=== PATIENT | female | born 1975 | race Asian ===

== ENCOUNTER 2017-08-12 16:02 | Inpatient (IN) | payer OTHER ==
[~2017-08-12] VITALS: Ht 152.4 cm; Wt 67.8 kg
[2017-08-12 17:03] LABS: APPEARANCE,URINE TURBID (CLEAR); GLUCOSE, URINE (UA) NEGATIVE (NEGATIVE); KETONES,URINE TRACE mg/dL (NEGATIVE); LEUKOCYTE ESTERASE ,URINE MODERATE (NEGATIVE); NITRATE,URINE NEGATIVE (NEGATIVE); OCCULT BLOOD,URINE LARGE (NEGATIVE); PROTEIN,URINE SEE CONFIRM (NEGATIVE)
[2017-08-12 17:04] LABS: BILIRUBIN,URINE PRELIM. POSITIVE (NEGATIVE)
[2017-08-12 17:06] LABS: SULFOSALICYLIC ACID,URINE 2+ (Negative)
[2017-08-12 17:07] LABS: RBC,URINE 51-100 /HPF (0-2)
[2017-08-12 17:08] LABS: BACTERIA,URINE Moderate /HPF (None Seen); SQUAMOUS EPITHELIAL CELL,UR Few /LPF (None Seen); WBC,URINE 26-50 /HPF (0-5)
[2017-08-12 17:09] LABS: MUCUS,URINE Few LPF (None Seen)
[2017-08-12 17:33] LABS: BASOPHILS % (AUTO) 0.8 % (0.0-2.0); EOSINOPHILS % (AUTO) 0.3 % (1.0-6.0); HEMATOCRIT 22.4 % (36-46); LYMPHOCYTES # (AUTO) 1.9 K/uL (1.0-4.8); LYMPHOCYTES % (AUTO) 10.4 % (22.0-44.0); MEAN CORPUSCULAR HEMOGLOBIN 19.1 pg (26.0-34.0); MEAN CORPUSCULAR HGB CONC 29.4 G/dL (31.0-37.0); MEAN CORPUSCULAR VOLUME 65 fL (80-100); MONOCYTES % (AUTO) 5.4 % (2.0-9.0); NEUTROPHILS # (AUTO) 15.1 K/uL (1.8-7.7); NEUTROPHILS % (AUTO) 83.1 % (40.0-70.0); PLATELET COUNT (AUTO) 705 K/uL (150-450); RED BLOOD CELL COUNT(AUTO) 3.44 MIL/uL (4.00-5.20); RED CELL DISTRIBUTION WIDTH 22.3 % (11.5-14.5)
[2017-08-12 17:37] LABS: ANION GAP 9 mmol/L (8-16); CALCIUM, TOTAL 8.9 mg/dL (8.8-10.5); CARBON DIOXIDE 30 mmol/L (22-29); CHLORIDE 99 mmol/L (98-107); CREATININE 0.77 mg/dL (0.60-1.30); GLOMERULAR FILTR. RATE CALC > 60 mL/min (>60); GLUCOSE,RANDOM 101 mg/dL (70-110); POTASSIUM 3.9 mmol/L (3.5-5.1); SODIUM SERUM 138 mmol/L (136-145); UREA NITROGEN, BLOOD 11 mg/dL (7-18)
[2017-08-12 17:50] LABS: HEMOGLOBIN 6.6 g/dL (12.0-16.0)
[2017-08-12 17:51] LABS: ALANINE AMINOTRANSFERASE 11 U/L (12-78); ALBUMIN 2.7 g/dL (3.4-5.0); ALKALINE PHOSPHATASE 150 U/L (46-116); ASPARTATE AMINOTRANSFERASE 34 U/L (15-37); BILIRUBIN,TOTAL 0.5 mg/dL (0.1-1.0); C-REACTIVE PROTEIN QUANT 11.34 mg/dL (0.00-0.30); THYROID STIMULATING HORMONE 1.16 uIU/mL (0.36-3.74); TOTAL PROTEIN, SERUM 7.7 g/dL (6.4-8.2)
[2017-08-12 17:58] LABS: PLATELET MORPHOLOGY COMMENT GIANT PLTS PRESENT
[2017-08-12] MEDS ORDERED: 0.9% SODIUM CHLORIDE 10 ML SYRINGE IVP PRN (18:45)
[2017-08-12] MEDS ORDERED: PEG 3350/NA SULF,BICARB,CL/KCL 4000 ML SOLUTION PO ONE (18:45)
[2017-08-12] MEDS ORDERED: ACETAMINOPHEN 325 MG TABLET PO PRN ×2 (18:45→21:30)
[2017-08-12] MEDS ORDERED: ONDANSETRON HCL 4 MG/2 ML VIAL IVP PRN (18:45)
[2017-08-12] MEDS ORDERED: CefTRIAXone SODIUM 1 GM in DEXTROSE 5%-WATER 10 ML IV ONE (18:45)
[2017-08-12] MEDS ORDERED: AZITHROMYCIN 500 MG/NS 250 ML IV ONE (18:45)
[2017-08-12 20:30] VITALS: BP 139/89
[2017-08-12] MEDS ORDERED: MAGNESIUM HYDROXIDE SUSPENSION 30 ML UDCUP PO PRN (21:30)
[2017-08-12 22:04] LABS: % IRON SATURATION 5.9 % (22-44)
[2017-08-12] MEDS: SOD FERRIC GLUC COMPLX/SUCROSE 125 MG in SODIUM CHLORIDE 0.9% 100 ML IV SCH (22:32)
[2017-08-12 23:35] VITALS: BP 138/83
[2017-08-13] VITALS (7 sets, daily range): BP systolic 121–128; BP diastolic 70–96
[2017-08-13 06:32] LABS: BASOPHILS % (AUTO) 1.3 % (0.0-2.0); EOSINOPHILS % (AUTO) 0.2 % (1.0-6.0); HEMATOCRIT 25.4 % (36-46); HEMOGLOBIN 7.3 g/dL (12.0-16.0); LYMPHOCYTES # (AUTO) 1.8 K/uL (1.0-4.8); LYMPHOCYTES % (AUTO) 8.8 % (22.0-44.0); MEAN CORPUSCULAR HEMOGLOBIN 18.9 pg (26.0-34.0); MEAN CORPUSCULAR HGB CONC 28.9 G/dL (31.0-37.0); MEAN CORPUSCULAR VOLUME 65 fL (80-100); MONOCYTES % (AUTO) 5.2 % (2.0-9.0); NEUTROPHILS # (AUTO) 16.9 K/uL (1.8-7.7); NEUTROPHILS % (AUTO) 84.5 % (40.0-70.0); RED BLOOD CELL COUNT(AUTO) 3.88 MIL/uL (4.00-5.20); RED CELL DISTRIBUTION WIDTH 22.3 % (11.5-14.5)
[2017-08-13 08:45] LABS: FOLATE SERUM 3.5 ng/mL (5.4-)
[2017-08-13] MEDS: PANTOPRAZOLE SODIUM 40 MG/VIAL IVP SCH (08:51)
[2017-08-13] MEDS: DOCUSATE SODIUM 100 MG CAPSULE PO SCH ×2 (08:52→20:28)
[2017-08-13 08:58] LABS: PLATELET COUNT (AUTO) 825 K/uL (150-450)
[2017-08-13 10:29] LABS: LACTATE DEHYDROGENASE 544 U/L (81-234)
[2017-08-13 11:31] LABS: FERRITIN 494 ng/mL (8-252)
[2017-08-13] MEDS ORDERED: LIDOCAINE HCL/PF 2% 5 ML SYRINGE IVP ONE (12:00)
[2017-08-13] MEDS ORDERED: SODIUM CHLORIDE 0.9% 1,000 ML IV ONE ×2 (12:00→12:03)
[2017-08-13] MEDS ORDERED: PROPOFOL 1% 20 ML VIAL IVP ONE (12:00)
[2017-08-13] MEDS ORDERED: BARIUM SULFATE 0.1% SUSPENSION 450 ML BOTTLE ONE (12:49)
[2017-08-13] MEDS ORDERED: IOVERSOL 350 MG/ML 100 ML VIAL ONE (12:50)
[2017-08-13] MEDS ORDERED: CefTRIAXone SODIUM 1 GM in DEXTROSE 5%-WATER 10 ML IV SCH (18:00)
[2017-08-13] MEDS: FOLIC ACID 1 MG TABLET PO SCH (18:05)
[2017-08-13] MEDS: SOD FERRIC GLUC COMPLX/SUCROSE 125 MG in SODIUM CHLORIDE 0.9% 100 ML IV SCH (20:29)
[2017-08-14 04:25] VITALS: BP 125/72
[2017-08-14 06:33] LABS: EOSINOPHILS % (AUTO) 0.3 % (1.0-6.0); HEMATOCRIT 24.9 % (36-46); HEMOGLOBIN 7.2 g/dL (12.0-16.0); LYMPHOCYTES # (AUTO) 1.8 K/uL (1.0-4.8); MEAN CORPUSCULAR HGB CONC 28.9 G/dL (31.0-37.0); MEAN CORPUSCULAR VOLUME 66 fL (80-100); MONOCYTES % (AUTO) 4.9 % (2.0-9.0); NEUTROPHILS # (AUTO) 16.9 K/uL (1.8-7.7); NEUTROPHILS % (AUTO) 84.8 % (40.0-70.0); RED BLOOD CELL COUNT(AUTO) 3.78 MIL/uL (4.00-5.20); RED CELL DISTRIBUTION WIDTH 22.2 % (11.5-14.5)
[2017-08-14 06:48] LABS: PLATELET COUNT (AUTO) 796 K/uL (150-450)
[2017-08-14 06:49] LABS: PLATELET MORPHOLOGY COMMENT GIANT PLTS PRESENT
[2017-08-14 08:06] VITALS: BP 117/89
[2017-08-14] MEDS: DOCUSATE SODIUM 100 MG CAPSULE PO SCH (08:10)
[2017-08-14] MEDS: FOLIC ACID 1 MG TABLET PO SCH (08:10)
[2017-08-14] MEDS: PANTOPRAZOLE SODIUM 40 MG/VIAL IVP SCH (08:10)
[2017-08-14] MEDS ORDERED: FERR-89 PO ×2 (11:06)
[2017-08-14] MEDS ORDERED: INFLUENZA VIRUS VACCINE QVS 2017-18 (3YR+)/PF 60 MCG/0.5 ML SYRINGE IM ONE (11:15)
[2017-08-14 11:38] VITALS: BP 127/76
[2017-08-14] MEDS ORDERED: MUPIROCIN CALCIUM 2% 22 GM OINTMENT NASAL SCH (13:00)
== END 2017-08-14 15:30 | disposition home or self-care (01) | DRG 530 ==
LOC: EMS 16:07 → 6N 19:05
PROVIDERS: ADMIT Internal Medicine; ATTEND Internal Medicine
PROC: 0DBN8ZX Excision of Sigmoid Colon, Via Natural or Artificial Opening Endoscopic, Diagnostic (ICD-10-PCS; principal; 2017-08-13 13:00)
PROC: 3E0234Z Introduction of Serum, Toxoid and Vaccine into Muscle, Percutaneous Approach (ICD-10-PCS; 2017-08-14)
DX: C56.9 Malignant neoplasm of unspecified ovary (principal); J18.9 Pneumonia, unspecified organism; E44.0 Moderate protein-calorie malnutrition; D12.5 Benign neoplasm of sigmoid colon; D50.9 Iron deficiency anemia, unspecified; N39.0 Urinary tract infection, site not specified; K62.5 Hemorrhage of anus and rectum; E53.8 Deficiency of other specified B group vitamins; K64.8 Other hemorrhoids; L29.9 Pruritus, unspecified; N83.9 Noninflammatory disorder of ovary, fallopian tube and broad ligament, unspecified; N92.0 Excessive and frequent menstruation with regular cycle; Z53.20 Procedure and treatment not carried out because of patient's decision for unspecified reasons; Z83.3 Family history of diabetes mellitus; Z23 Encounter for immunization; Z68.29 Body mass index [BMI] 29.0-29.9, adult
CPT/HCPCS: 74177; 76856; 82271; 82607; 82728; 82746; 83540; 83550; 83605; 83615; 84443; 86140; 86850; 86900; 86901; 86920; 87040; 87086; 88305; 90471; 93005; 96365; 96366; 99285; C9113; J0456; J0696; J2704; J2916; J3490; J7030; J7050; J7060